=== PATIENT | male | born 1995 | race Caucasian/White ===

== ENCOUNTER 2022-11-27 20:29 | Emergency (ER) | payer BC ==
[~2022-11-27] VITALS: Ht 170.2 cm; Wt 95.3 kg
[2022-11-27 21:48] VITALS: BP 105/63
[2022-11-27] MEDS: IBUPROFEN 800 MG TAB PO ONE (21:57)
[2022-11-27] MEDS: ACETAMINOPHEN EXTRA STRENGTH 500 MG TAB PO ONE (21:58)
--- NOTE | 2022-11-27 21:58 | NUR ---
PT MEDICATED AND COOK TACO PER ORDERS. PT BACK IN LOBBY;
--- NOTE | 2022-11-28 01:39 | NUR ---
pt to bed 02
--- NOTE | 2022-11-28 01:50 | NUR ---
Patient resting in bed, A/Ox4, chest rise and fall symmetrical, no s/s of distress, on monitor.
[2022-11-28] MEDS ORDERED: ALBU0.0912 IH ×2 (02:38→03:16)
[2022-11-28] MEDS ORDERED: NIRM1TAB PO ×2 (02:38→03:16)
[2022-11-28] MEDS ORDERED: NAPR-54 PO ×2 (02:38→03:16)
[2022-11-28 03:00] VITALS: BP 122/73
--- NOTE | 2022-11-28 03:00 | NUR ---
Patient resting in bed, A/Ox4, chest rise and fall symmetrical, no s/s of distress, on monitor.
== END 2022-11-28 03:04 | disposition home or self-care (01) ==
LOC: MED 20:29
DX: U07.1 COVID-19 (principal); Z79.899 Other long term (current) drug therapy; Z79.1 Long term (current) use of non-steroidal anti-inflammatories (NSAID)
CPT/HCPCS: 71045; 87426; 87804; 99284; Q0092